=== PATIENT | male | born 1995 | race Caucasian/White ===

== ENCOUNTER 2016-12-17 14:10 | Inpatient (IN) | payer BC ==
[~2016-12-17] VITALS: Ht 167.6 cm; Wt 88.0 kg
[2016-12-17] VITALS (18 sets, daily range): BP systolic 85–120; BP diastolic 40–53; PULSE 62–74; RESP 15–24; TEMP 98.1; Ht 167.6 cm; Wt 88.0 kg
[~2016-12-17 14:10] MED LIST: ACET325T33 PO; OMEP20CA9 PO
[2016-12-17] MEDS ORDERED: SOD CHLORIDE 0.9% 1,000 ML IV STA (15:49)
[2016-12-17] MEDS ORDERED: ONDANSETRON 4 MG INJ IV STA (15:49)
[2016-12-17] MEDS ORDERED: morphine 4 MG/ML VIAL IV STA ×2 (15:49→16:19)
[2016-12-17 16:05] LABS: BASOPHILS % 0.4 % (0.0-2.0); EOSINOPHILS # 0.3 10^3/ul (0.0-0.5); EOSINOPHILS % 3.6 % (0.0-7.0); HEMATOCRIT 44.7 % (42.0-52.0); HEMOGLOBIN 15.4 g/dl (14.0-18.0); LYMPHOCYTES # 2.4 10^3/ul (0.8-2.9); LYMPHOCYTES % 28.6 % (15.0-51.0); MEAN CORPUSCULAR HEMOGLOBIN 31.5 pg (29.0-33.0); MEAN CORPUSCULAR HGB CONC 34.5 g/dl (32.0-37.0); MEAN CORPUSCULAR VOLUME 91.4 fl (82.0-101.0); MONOCYTE # 0.7 10^3/ul (0.3-0.9); MONOCYTES % 8.6 % (0.0-11.0); NEUTROPHILS % 58.7 % (39.0-77.0); PLATELET COUNT 213 10^3/UL (140-415); RED BLOOD COUNT 4.89 10^6/ul (4.70-6.10); RED CELL DISTRIBUTION WIDTH 12.3 % (11.5-14.5); WHITE BLOOD COUNT 8.3 10^3/ul (4.8-10.8)
[2016-12-17 16:07] LABS: ADD UMIC NO; UR ASCORBIC ACID NEGATIVE (NEGATIVE); UR BILIRUBIN (Dip) NEGATIVE (NEGATIVE); UR BLOOD (Dip) NEGATIVE (NEGATIVE); UR CLARITY CLEAR (CLEAR); UR COLOR YELLOW (YELLOW); UR GLUCOSE (Dip) NEGATIVE (NEGATIVE); UR KETONES (Dip) NEGATIVE (NEGATIVE); UR LEUKOCYTE ESTERASE (Dip) NEGATIVE Leu/ul (NEGATIVE); UR NITRITE (Dip) NEGATIVE (NEGATIVE); UR SPECIFIC GRAVITY (Dip) 1.025 (1.003-1.030); UR TOTAL PROTEIN (Dip) NEGATIVE (NEGATIVE); UR UROBILINOGEN (Dip) NEGATIVE (NEGATIVE)
--- NOTE | 2016-12-17 16:20 | RADRPT ---
PROCEDURE: CT abdomen and pelvis without contrast. CLINICAL INDICATION: Abdominal pain. TECHNIQUE: CT of the abdomen and pelvis without contrast was performed on a multidetector high-reso lution CT scanner. Coronal and sagittal reformatted images were obtained from the axial source image s. Images were reviewed on a high-resolution PACS workstation. The total exam CTDI equals 11.64 mGy and the total exam DLP equals 728.25 mGy-cm. One or more of the following dose reduction techniques were used: - Automated exposure control. - Adjustment of the mA and/or kV according to patient size. - Use of iterative reconstruction technique. COMPARISON: Ultrasound dated 10/06/2015. FINDINGS: Visualized lower thorax: The visualized lung bases are clear. The visualized heart is unremarkable. Hepatobiliary system and spleen: The liver is grossly unremarkable. There is no intra or extrahepat ic biliary ductal dilatation. The gallbladder is grossly unremarkable. The spleen is grossly unremar kable. The pancreas is grossly unremarkable. Adrenal glands and genitourinary system: The adrenal glands are grossly unremarkable. There is no n ephrolithiasis or hydronephrosis. The urinary bladder is grossly unremarkable. The prostate gland an d seminal vesicles are grossly unremarkable. Gastrointestinal system: The stomach and small bowel are unremarkable. There is no bowel wall thick ening or evidence of obstruction. The appendix is in the right lower quadrant and is dilated measuri ng 11 mm in diameter with periappendiceal inflammatory change, consistent with appendicitis. Peritoneum, vascular, and lymphatics: There is no free intraperitoneal air, free fluid, or focal dr ainable collection within the abdomen or pelvis. There are enlarged right lower quadrant mesenteric lymph nodes, likely reactive in nature. There are atherosclerotic changes of the aorta, which is non aneurysmal. Musculoskeletal system and soft tissues: There are no concerning osseous lesions. The soft tissues are unremarkable. IMPRESSION: 1. Positive for appendicitis. 2. Enlarged right lower quadrant mesenteric lymph nodes, likely reactive in nature. These findings discussed with Kerry Kwong at 1618 hours on 12/17/2016. RPTAT: HLBP .Marv Vergara MD, Date Time Electronically viewed and signed by .Marv Vergara MD, on 12/17/2016 16:20 .P/
--- NOTE | 2016-12-17 16:23 | ERD ---
ER Documentation Chief Complaint Date/Time DATE: 12/17/16 TIME: 16:21 Chief Complaint LOWER MID-AP 8/10 X 2 DAYS, DENIES N&V&D HPI This is a 21-year-old male presents to the ER with right lower quadrant pain that started yesterday morning. Patient states that pain is achy in nature it is nonradiating. He states he feels bloated. He denies any nausea vomiting or diarrhea. Patient denies any constipation. He denies any urinary frequency or dysuria. He denies any fevers or chills. ROS 12 point review of systems was done, all negative except per HPI. Medications Home Meds Active Scripts Acetaminophen* (Tylenol*) 325 Mg Tablet, 2 TAB PO Q8 Y for PAIN AND OR ELEVATED TEMP, #20 TAB Prov:MEÑO LYMAN PA-C 10/06/15 Omeprazole* (Prilosec*) 20 Mg Capsule.dr, 20 MG PO BID, #30 CAP Prov:MEÑO LYMAN PA-C 10/06/15 Allergies Allergies: Coded Allergies: No Known Allergy (Unverified , 12/17/16) PMhx/Soc History of Surgery: No Anesthesia Reaction: No Hx Neurological Disorder: No Hx Respiratory Disorders: No Hx Cardiac Disorders: No Hx Psychiatric Problems: No Hx Miscellaneous Medical Probl: Yes (GASTRITIS ) Hx Alcohol Use: No Hx Substance Use: No Hx Tobacco Use: No Smoking Status: Never smoker Physical Exam Vitals Vital Signs Date Time Temp Pulse Resp B/P Pulse Ox O2 Delivery O2 Flow Rate FiO2 12/17/16 14:13 98.2 67 18 140/65 99 Physical Exam GENERAL: The patient is well developed and appropriate for usual state of health , in no apparent distress. HEENT: Atraumatic. CHEST: Clear to auscultation bilaterally. There are no rales, wheezes or rhonchi. HEART: Regular rate and rhythm. No murmurs, clicks, rubs or gallops. ABDOMEN: Soft nondistended, tender to palpation in the right lower. Good bowel sounds. No rebound or guarding. No gross peritonitis. No gross organomegaly or masses. BACK: No midline or flank tenderness. NEURO: Alert and oriented. SKIN: There is no apparent rash or petechia. The skin is warm and dry. Result Diagram: 12/17/16 1600 Results 24 hrs Laboratory Tests Test 12/17/16 16:00 White Blood Count 8.310^3/ul Red Blood Count 4.8910^6/ul Hemoglobin 15.4g/dl Hematocrit 44.7% Mean Corpuscular Volume 91.4fl Mean Corpuscular Hemoglobin 31.5pg Mean Corpuscular Hemoglobin Concent 34.5g/dl Red Cell Distribution Width 12.3% Platelet Count 56403^3/UL Mean Platelet Volume 10.0fl Neutrophils % 58.7% Lymphocytes % 28.6% Monocytes % 8.6% Eosinophils % 3.6% Basophils % 0.4% Nucleated Red Blood Cells % 0.0/100WBC Neutrophils # (Manual) 4.910^3/ul Lymphocytes # 2.410^3/ul Monocytes # 0.710^3/ul Eosinophils # 0.310^3/ul Basophils # 0.010^3/ul Nucleated Red Blood Cells # 0.010^3/ul Urine Color YELLOW Urine Clarity CLEAR Urine pH 5.0 Urine Specific [place] 1.025 Urine Ketones NEGATIVEmg/dL Urine Nitrite NEGATIVEmg/dL Urine Bilirubin NEGATIVEmg/dL Urine Urobilinogen NEGATIVEmg/dL Urine Leukocyte Esterase NEGATIVELeu/ul Urine Hemoglobin NEGATIVEmg/dL Urine Glucose NEGATIVEmg/dL Urine Total Protein NEGATIVEmg/dl Current Medications Medications (Trade) Dose Ordered Sig/Stephane Route PRN Reason Start Time Stop Time Status Last Admin Dose Admin Sodium Chloride (NS) 1,000 ml @ 1,000 mls/hr Q1H STAT IV 12/17/16 15:49 12/17/16 16:48 12/17/16 16:11 Morphine Sulfate (morphine) 4 mg ONCE STAT IV 12/17/16 15:49 12/17/16 15:51 DC 12/17/16 16:11 Ondansetron HCl (Zofran Inj) 4 mg ONCE STAT IV 12/17/16 15:49 12/17/16 15:51 DC 12/17/16 16:[id number] [place] [id number] Radiology Main Line: [phone] DIAGNOSTIC IMAGING REPORT Patient: FELIX CAIN : 1995 Age: 21 Sex: M MR #: [id number] DOS: 12/17/16 1549 Ordering MD: KERRY JOHNSON PA-C Location: [facility] Room/Bed: PROCEDURE: CT abdomen and pelvis without contrast. CLINICAL INDICATION: Abdominal pain. TECHNIQUE: CT of the abdomen and pelvis without contrast was performed on a multidetector high-resolution CT scanner. Coronal and sagittal reformatted images were obtained from the axial source images. Images were reviewed on a high-resolution PACS workstation. The total exam CTDI equals 11.64 mGy and the total exam DLP equals 728.25 mGy-cm. One or more of the following dose reduction techniques were used: - Automated exposure control. - Adjustment of the mA and/or kV according to patient size. - Use of iterative reconstruction technique. COMPARISON: Ultrasound dated 10/06/2015. FINDINGS: Visualized lower thorax: The visualized lung bases are clear. The visualized heart is unremarkable. Hepatobiliary system and spleen: The liver is grossly unremarkable. There is no intra or extrahepatic biliary ductal dilatation. The gallbladder is grossly unremarkable. The spleen is grossly unremarkable. The pancreas is grossly unremarkable. Adrenal glands and genitourinary system: The adrenal glands are grossly unremarkable. There is no nephrolithiasis or hydronephrosis. The urinary bladder is grossly unremarkable. The prostate gland and seminal vesicles are grossly unremarkable. Gastrointestinal system: The stomach and small bowel are unremarkable. There is no bowel wall thickening or evidence of obstruction. The appendix is in the right lower quadrant and is dilated measuring 11 mm in diameter with periappendiceal inflammatory change, consistent with appendicitis. Peritoneum, vascular, and lymphatics: There is no free intraperitoneal air, free fluid, or focal drainable collection within the abdomen or pelvis. There are enlarged right lower quadrant mesenteric lymph nodes, likely reactive in nature. There are atherosclerotic changes of the aorta, which is nonaneurysmal. Musculoskeletal system and soft tissues: There are no concerning osseous lesions. The soft tissues are unremarkable. IMPRESSION: 1. Positive for appendicitis. 2. Enlarged right lower quadrant mesenteric lymph nodes, likely reactive in nature. These findings discussed with Kerry Johnson at 1618 hours on 12/17/2016. RPTAT: HLBP .Marv Vergara MD, MD Date Time Electronically viewed and signed by .Marv Vergara MD, MD on 12/17/2016 16:20 .P/ CC: KERRY JOHNSON Procedures/MDM This is a 21-year-old male presents to the ER with right lower quadrant pain, patient does have acute appendicitis, he will be admitted for further management and care. Departure Diagnosis: Primary Impression: Appendicitis Condition: Fair KERRY JOHNSON Dec 17, 2016 16:23
[2016-12-17] MEDS ORDERED: PIPER-TAZO 3.375 GM IV (PMX) 100 ML IVPB ONE (16:30)
[2016-12-17 16:37] LABS: ALBUMIN 4.6 g/dl (3.3-4.9); ALBUMIN/GLOBULIN RATIO 1.31; BILIRUBIN,INDIRECT 0.6 mg/dl (0-1.1); BILIRUBIN,TOTAL 0.6 mg/dl (0.2-1.3); CREATININE 0.94 mg/dl (0.61-1.24); POTASSIUM 3.8 mmol/L (3.5-5.1); TOTAL PROTEIN 8.1 g/dl (6.1-8.1)
[2016-12-17 16:55] LABS: INR 1.02; PROTIME 13.4 Sec (12.2-14.2)
[2016-12-17 16:56] LABS: PARTIAL THROMBOPLASTIN TIME 29.7 Sec (25.0-35.0)
[2016-12-17] MEDS ORDERED: NACL 0.9% 3 ML SYG IV SCH (17:30)
[2016-12-17] MEDS ORDERED: ACETAMINOPHEN 325 MG TAB PO PRN ×2 (17:30→23:00)
[2016-12-17] MEDS ORDERED: ONDANSETRON 4 MG INJ IV PRN ×4 (17:30→23:00)
[2016-12-17] MEDS ORDERED: morphine 2 MG INJ IV PRN ×2 (17:30→23:00)
[2016-12-17] MEDS: SOD CHLORIDE 0.9% 1,000 ML IV SCH (18:36)
--- NOTE | 2016-12-17 21:07 | CONS ---
Date/Time of Note Date/Time of Note DATE: 12/17/16 TIME: 21:03 Assessment/Plan Assessment/Plan Chief Complaint/Hosp Course 21-year-old male with acute appendicitis. This has been confirmed via CT scan. * Continue nothing by mouth * Broad-spectrum intravenous antibiotics * IV fluid hydration * Pain control Definitive treatment will consist of laparoscopic appendectomy; possible open. This has been explained to the patient along with all risks and benefits of the procedure. [She] fully understands and is agreeable to the treatment plan as outlined. Informed consent will be obtained and the patient will be scheduled for laparoscopic appendectomy; possible open Problems: Consultation Date/Type/Reason Admit Date/Time Date of Consultation: Dec 17, 2016 Type of Consultation: GENERAL SURGERY Reason for Consultation Acute appendicitis Hx of Present Illness The patient is a 21-year-old male with no significant past medical history who presented to the emergency room with a 1 day history of right lower quadrant abdominal pain. He denies any nausea/vomiting, diarrhea/constipation or fever/ chills. There have been no similar episodes of pain in the past. On arrival to the emergency room CT scan of the abdomen and pelvis showed a dilated appendix with periappendiceal inflammatory changes. Currently, he is still complaining of right lower quadrant abdominal pain. A 14 point review of systems was conducted and was negative except for that which is mentioned in HPI Past Medical History Medical History: no pertinent history Past Surgical History Past Surgical Hx: no surgical history Family History Significant Family History: no pertinent family hx Social History Smoking Status: Never smoker Exam/Review of Systems Vital Signs Vitals Vital Signs Date Time Temp Pulse Resp B/P Pulse Ox O2 Delivery O2 Flow Rate FiO2 12/17/16 20:42 68 18 121/66 98 Room Air 12/17/16 18:40 98.1 Exam GENERAL: Awake, alert, oriented x 3. No acute distress. SKIN: No jaundice. HEENT: PERRLA, EOMI, No Scleral Icterus NECK: Supple without JVD CARDIOVASCULAR: S1S2, regular rate and rhythm. No murmurs appreciated. RESPIRATORY: Clear to auscultation bilaterally. ABDOMEN: Soft, bowel sounds present, nondistended, there is right lower quadrant tenderness to palpation. There is no rebound or guarding. EXTREMITIES: Free range of motion x 4. No cyanosis, edema, or clubbing. NEUROLOGIC: Cranial nerves II-XII are intact. Sensation is intact grossly. Results Result Diagram: 12/17/16 1600 12/17/16 1600 Results 24 hrs Laboratory Tests Test 12/17/16 16:00 White Blood Count 8.3 Red Blood Count 4.89 Hemoglobin 15.4 Hematocrit 44.7 Mean Corpuscular Volume 91.4 Mean Corpuscular Hemoglobin 31.5 Mean Corpuscular Hemoglobin Concent 34.5 Red Cell Distribution Width 12.3 Platelet Count 213 Mean Platelet Volume 10.0 Neutrophils % 58.7 Lymphocytes % 28.6 Monocytes % 8.6 Eosinophils % 3.6 Basophils % 0.4 Nucleated Red Blood Cells % 0.0 Neutrophils # (Manual) 4.9 Lymphocytes # 2.4 Monocytes # 0.7 Eosinophils # 0.3 Basophils # 0.0 Nucleated Red Blood Cells # 0.0 Prothrombin Time 13.4 Prothrombin Time Ratio 1.0 INR International Normalized Ratio 1.02 Activated Partial Thromboplast Time 29.7 Urine Color YELLOW Urine Clarity CLEAR Urine pH 5.0 Urine Specific [place] 1.025 Urine Ketones NEGATIVE Urine Nitrite NEGATIVE Urine Bilirubin NEGATIVE Urine Urobilinogen NEGATIVE Urine Leukocyte Esterase NEGATIVE Urine Hemoglobin NEGATIVE Urine Glucose NEGATIVE Urine Total Protein NEGATIVE Sodium Level 138 Potassium Level 3.8 Chloride Level 101 Carbon Dioxide Level 26 Anion Gap 15 Blood Urea Nitrogen 18 Creatinine 0.94 Glucose Level 95 Calcium Level 9.0 Total Bilirubin 0.6 Direct Bilirubin 0.00 Indirect Bilirubin 0.6 Aspartate Amino Transf (AST/SGOT) 27 Alanine Aminotransferase (ALT/SGPT) 39 Alkaline Phosphatase 88 Total Protein 8.1 Albumin 4.6 Globulin 3.50 H Albumin/Globulin Ratio 1.31 Lipase 52 Medications Medications Current Medications Sodium Chloride (NS) 1,000 ml @ 100 mls/hr Q10H IV Last administered on t 18:36; Admin Dose 100 MLS/HR; Start 12/17/16 at 17:29 Ondansetron HCl (Zofran Inj) 4 mg Q6H PRN IV NAUSEA AND/OR VOMITING; Start 12/17 at 17:30 Morphine Sulfate (morphine) 2 mg Q4H PRN IV SEVERE PAIN LEVEL 7-10; Start at 17:30 Procedures Procedures PROCEDURE: CT abdomen and pelvis without contrast. CLINICAL INDICATION: Abdominal pain. TECHNIQUE: CT of the abdomen and pelvis without contrast was performed on a multidetector high-resolution CT scanner. Coronal and sagittal reformatted images were obtained from the axial source images. Images were reviewed on a high-resolution PACS workstation. The total exam CTDI equals 11.64 mGy and the total exam DLP equals 728.25 mGy-cm. One or more of the following dose reduction techniques were used: - Automated exposure control. - Adjustment of the mA and/or kV according to patient size. - Use of iterative reconstruction technique. COMPARISON: Ultrasound dated 10/06/2015. FINDINGS: Visualized lower thorax: The visualized lung bases are clear. The visualized heart is unremarkable. Hepatobiliary system and spleen: The liver is grossly unremarkable. There is no intra or extrahepatic biliary ductal dilatation. The gallbladder is grossly unremarkable. The spleen is grossly unremarkable. The pancreas is grossly unremarkable. Adrenal glands and genitourinary system: The adrenal glands are grossly unremarkable. There is no nephrolithiasis or hydronephrosis. The urinary bladder is grossly unremarkable. The prostate gland and seminal vesicles are grossly unremarkable. Gastrointestinal system: The stomach and small bowel are unremarkable. There is no bowel wall thickening or evidence of obstruction. The appendix is in the right lower quadrant and is dilated measuring 11 mm in diameter with periappendiceal inflammatory change, consistent with appendicitis. Peritoneum, vascular, and lymphatics: There is no free intraperitoneal air, free fluid, or focal drainable collection within the abdomen or pelvis. There are enlarged right lower quadrant mesenteric lymph nodes, likely reactive in nature. There are atherosclerotic changes of the aorta, which is nonaneurysmal. Musculoskeletal system and soft tissues: There are no concerning osseous lesions. The soft tissues are unremarkable. IMPRESSION: 1. Positive for appendicitis. 2. Enlarged right lower quadrant mesenteric lymph nodes, likely reactive in nature. These findings discussed with Rohith Kwong at 1618 hours on 12/17/2016. RPTAT: HLBP .Marv Vergara MD, MD Date Time Electronically viewed and signed by .Marv Vergara MD, MD on 12/17/2016 16:20 .P/ CC: ROHITH KWONG MICHAEL A. MD Dec 17, 2016 21:07
[2016-12-17] MEDS ORDERED: BUPIVACAINE 0.5% 30 ML VIAL INJ ONE (21:17)
[2016-12-17] MEDS ORDERED: SUCCINYLCHOLINE CHLORIDE 100 MG/5 ML SYG IV ONE (21:42)
[2016-12-17] MEDS ORDERED: PROPOFOL 20 ML ONE ×2 (21:42→22:09)
[2016-12-17] MEDS ORDERED: LIDOCAINE 2% (SDV) 5 ML INJ ONE (21:42)
[2016-12-17] MEDS ORDERED: MIDAZOLAM 1 MG/ML 2 ML INJ ONE (21:43)
[2016-12-17] MEDS ORDERED: ROCURONIUM 50 MG INJ ONE (21:43)
[2016-12-17] MEDS ORDERED: FENTAnyl 50 MCG/ML VIAL ONE (21:43)
[2016-12-17] MEDS ORDERED: HYDROmorphONE (0.2 MG/ML) 10ML SYG IV PRN ×3 (22:00)
[2016-12-17] MEDS ORDERED: MEPERIDINE 25 MG INJ IV PRN (22:00)
[2016-12-17] MEDS ORDERED: FENTAnyl 50 MCG/ML VIAL IV PRN ×3 (22:00)
[2016-12-17] MEDS ORDERED: PROCHLORPERAZINE 10 MG INJ IV PRN (22:00)
[2016-12-17] MEDS ORDERED: DIPHENHYDRAMINE 50 MG INJ IV PRN (22:00)
[2016-12-17] MEDS ORDERED: ONDANSETRON 4 MG INJ ONE (22:06)
[2016-12-17] MEDS ORDERED: FAMOTIDINE 20 MG INJ ONE (22:06)
[2016-12-17] MEDS ORDERED: DEXAMETHASONE 4 MG/ML 1 ML INJ ONE (22:06)
[2016-12-17] MEDS ORDERED: BUPIVACAINE 0.5%/EPI (SDV) 10 ML INJ ONE (22:17)
[2016-12-17] MEDS ORDERED: KETOROLAC 30 MG INJ ONE (22:33)
[2016-12-17] MEDS ORDERED: NEOSTIGMINE 3 MG/3 ML SYRINGE ONE ×2 (22:34→22:42)
[2016-12-17] MEDS ORDERED: GLYCOPYRROLATE 0.4 MG INJ ONE ×2 (22:34→22:42)
--- NOTE | 2016-12-17 22:45 | OPR ---
Date/Time of Note Date/Time of Note DATE: 12/17/16 TIME: 22:42 Operative Report Procedure Date: Dec 17, 2016 Preoperative Diagnosis Acute appendicitis with localized peritonitis Postoperative Diagnosis Acute appendicitis with localized peritonitis Operation Performed Laparoscopic appendectomy Surgeon: HOLGER PARRISH MD Anesthesia Type: general Anesthesiologist: ISAURO PANTOJA MD Estimated Blood Loss: none Transfusion Required: no Specimens Appendix Grafts/Implants: none Complications: no Pt Condition Post Procedure: stable Disposition: PACU Indications Patient is a 21-year-old male who presented to the emergency room complaining of a 1 day history of right lower quadrant abdominal pain. The patient had clinical signs and symptoms of acute appendicitis which was confirmed via CT scan. He was therefore admitted, kept nothing by mouth, started on broad- spectrum intravenous antibiotics and scheduled for laparoscopic appendectomy; possible open as definitive treatment. All risks and benefits of the procedure including but not limited to: Wound infection, excessive bleeding, injury to intra-abdominal organs, conversion to open procedure etc. were explained to the patient in full detail. The patient fully understood and wished to proceed with the procedure. Informed consent was therefore obtained. Operative\Procedure Findings Nonperforated appendicitis Procedure Description The patient was brought to the operating room and placed supine on the operating table. Bilateral sequential compression devices were placed on both lower extremities. The patient had been maintained on broad-spectrum intravenous antibiotics while an inpatient on the floor. After the induction of smooth general endotracheal anesthesia the patient's abdomen was prepped and draped in the standard surgical fashion. A 5 mm incision was made in the superior umbilicus and a Veress needle was used to access the intra-abdominal cavity atraumatically. Pneumoperitoneum was then obtained and the Veress needle was exchanged for a 5 mm trocar through which a 5 mm laparoscope was placed. Two further working ports were then placed, a 12 mm port in the midline suprapubic area and another 5 mm port midway between the suprapubic and umbilical port sites. All port sites were anesthetized with 0.25% Marcaine prior to incision. Attention was then turned towards the right lower quadrant. Using atraumatic graspers, the appendix was grasped and retracted superiorly and medially exposing the mesoappendix. The appendix appeared erythematous and inflamed consistent with acute appendicitis, but not perforated. Using the harmonic scalpel the mesoappendix was taken down to the level of the appendiceal base. The appendix was then transected at its base using a firing of the laparoscopic ASHUTOSH stapler. Once completely free the appendix was placed in an Endo Catch bag and withdrawn through the suprapubic port site and passed off the field as specimen. Hemostasis was then inspected for and noted to be total. The fascia of the suprapubic port site was reapproximated using an Endo Close device and 0 Vicryl suture. Pneumoperitoneum was then released and all remaining trochars were withdrawn under direct vision. The subcutaneous tissues were irrigated with warm normal saline and further local anesthesia was applied around the skin of the incision sites. The skin was then reapproximated using 4- 0 Monocryl sutures in subcuticular fashion. The incisions were cleaned and Dermabond was applied and the patient was awoken from anesthesia and transported to the recovery room in stable condition. All counts were correct at the end of the case x 2. HOLGER PARRISH MD Dec 17, 2016 22:45
[2016-12-17] MEDS ORDERED: IBUPROFEN 600 MG TAB PO PRN (23:00)
[2016-12-17] MEDS ORDERED: HYDROCODONE/APAP (5/325) TAB PO PRN (23:00)
[2016-12-17] MEDS ORDERED: HYDROCODONE/APAP (10/325) TAB PO PRN (23:00)
[2016-12-17] MEDS ORDERED: KETOROLAC 30 MG INJ IV PRN (23:00)
[2016-12-18 00:30] VITALS: BP 107/52; PULSE 60; RESP 18
[2016-12-18 00:45] VITALS: BP 110/50; PULSE 63; RESP 18
[2016-12-18 01:00] VITALS: BP 112/48; PULSE 62; RESP 18
[2016-12-18 01:15] VITALS: BP 109/51; PULSE 66; RESP 18
[2016-12-18] MEDS: AMPICILLIN/SULB 3 GM/NS (PMX) 100 ML IVPB SCH ×3 (01:16→11:18)
[2016-12-18 02:00] VITALS: BP 103/53; RESP 18
[2016-12-18] MEDS: SOD CHLORIDE 0.9% 1,000 ML IV SCH ×2 (03:29→06:14)
[2016-12-18 05:36] LABS: BASOPHILS % 0.1 % (0.0-2.0); EOSINOPHILS % 0.1 % (0.0-7.0); HEMATOCRIT 44.9 % (42.0-52.0); HEMOGLOBIN 15.2 g/dl (14.0-18.0); LYMPHOCYTES # 0.9 10^3/ul (0.8-2.9); LYMPHOCYTES % 10.9 % (15.0-51.0); MEAN CORPUSCULAR HEMOGLOBIN 31.3 pg (29.0-33.0); MEAN CORPUSCULAR HGB CONC 33.9 g/dl (32.0-37.0); MEAN CORPUSCULAR VOLUME 92.4 fl (82.0-101.0); MEAN PLATELET VOLUME 10.2 fl (7.4-10.4); MONOCYTE # 0.1 10^3/ul (0.3-0.9); MONOCYTES % 1.7 % (0.0-11.0); PLATELET COUNT 186 10^3/UL (140-415); RED BLOOD COUNT 4.86 10^6/ul (4.70-6.10); WHITE BLOOD COUNT 8.5 10^3/ul (4.8-10.8)
[2016-12-18 05:52] LABS: ALBUMIN 3.7 g/dl (3.3-4.9); ALBUMIN/GLOBULIN RATIO 1.23; BILIRUBIN,INDIRECT 0.6 mg/dl (0-1.1); BILIRUBIN,TOTAL 0.6 mg/dl (0.2-1.3); CALCIUM 8.9 mg/dl (8.4-10.2); CREATININE 0.75 mg/dl (0.61-1.24); POTASSIUM 4.4 mmol/L (3.5-5.1); TOTAL PROTEIN 6.7 g/dl (6.1-8.1)
[2016-12-18 08:12] VITALS: BP 118/54; RESP 20
--- NOTE | 2016-12-18 11:36 | HP ---
Date/Time of Note Date/Time of Note DATE: 12/18/16 TIME: 11:34 Assessment/Plan VTE Prophylaxis VTE Prophylaxis Intervention: other Lines/Catheters IV [facility] Per[facility] IV Assessment/Plan Chief Complaint/Hosp Course 1) appendicitis - s/p appendectomy - eating orally now - possible discharge today Problems: HPI/ROS Admit Date/Time Admit Date/Time 12/17/16 Hx of Present Illness Patient without any previous medical problems comes in with abdominal pain. Patient was found to have appendicitis and is admitted for further treatment. PMH/Family/Social Past Medical History Medical History: no pertinent history Past Surgical History Past Surgical Hx: no surgical history Social History Alcohol Use: occasionally Smoking Status: Never smoker Exam/Review of Systems Vital Signs Vitals Vital Signs Date Time Temp Pulse Resp B/P Pulse Ox O2 Delivery O2 Flow Rate FiO2 12/18/16 08:12 97.2 63 20 118/54 98 12/18/16 01:15 Room Air 12/17/16 23:14 8.0 Intake and Output 12/17/16 12/17/16 12/18/16 15:00 23:00 07:00 Intake Total 2000 ml 1560 ml Output Total 10 ml 700 ml Balance 1990 ml 860 ml Exam Constitutional: well developed Head: atraumatic, normocephalic Neck: supple Respiratory: clear to auscultation Cardiovascular: regular rate and rhythm Gastrointestinal: soft Extremities: normal pulses Labs Result Diagram: 12/18/16 0449 12/18/16 0449 Medications Medications Current Medications Sodium Chloride (NS) 1,000 ml @ 100 mls/hr Q10H IV Last administered on 06:14; Admin Dose 100 MLS/HR; Start 12/17/16 at 17:29 Ondansetron HCl (Zofran Inj) 4 mg Q6H PRN IV NAUSEA AND/OR VOMITING; Start 12/17 at 17:30 Morphine Sulfate 2 mg 2 mg Q4H PRN IV SEVERE PAIN LEVEL 7-10; Start 12/17/16 at 17:30 Ampicillin Sodium/ Sulbactam Sodium (Unasyn 3gm/NS (Pmx)) 100 ml @ 200 mls/hr Q6H IVPB Last administered on 12/18/16 11:18; Admin Dose 200 MLS/HR; Start 12/17 at 23:00; Stop 12/18/16 at 22:59 Morphine Sulfate (morphine) 2 mg Q2H PRN IV PAIN LEVEL 6-10; Start 12/17/16 at 23:00 Acetaminophen/ Hydrocodone Bitart ([place] (5/325)) 1 tab Q6H PRN PO PAIN LEVEL 6 -10; Start 12/17/16 at 23:00 Acetaminophen/ Hydrocodone Bitart ([place] (10/325)) 1 tab Q6H PRN PO PAIN; Start 12/17/16 at 23:00 Ketorolac Tromethamine (Toradol) 30 mg Q6H PRN IV PAIN; Start 12/17/16 at 23:00 ; Stop 12/20/16 at 22:59 Acetaminophen (Tylenol Tab) 650 mg Q6H PRN PO PAIN AND OR ELEVATED TEMP; Start 12/17/16 at 23:00 Ondansetron HCl (Zofran Inj) 4 mg Q6H PRN IV NAUSEA AND/OR VOMITING; Start 12/17 at 23:00 Ibuprofen (Motrin) 600 mg Q6H PRN PO PAIN LEVEL 1-5; Start 12/20/16 at 13:00 HUSAM CUETO Dec 18, 2016 11:36
--- NOTE | 2016-12-18 12:12 | PN ---
Date/Time of Note Date/Time of Note DATE: 12/18/16 TIME: 12:10 Assessment/Plan Lines/Catheters IV [facility] ([facility] Peripheral IV Assessment/Plan Assessment/Plan 21-year-old male status post laparoscopic appendectomy postop day #1 * Surgically stable for discharge home when medically cleared * Follow-up in office in 1-2 weeks Subjective 24 Hr Interval Summary Doing well. Denies abdominal pain. Tolerating diet. Ambulating. Afebrile. Exam/Review of Systems Vital Signs Vitals Vital Signs Date Time Temp Pulse Resp B/P Pulse Ox O2 Delivery O2 Flow Rate FiO2 12/18/16 08:12 97.2 63 20 118/54 98 12/18/16 01:15 Room Air 12/17/16 23:14 8.0 Intake and Output 12/17/16 12/17/16 12/18/16 15:00 23:00 07:00 Intake Total 2000 ml 1560 ml Output Total 10 ml 700 ml Balance 1990 ml 860 ml Exam Free Text/Dictation GENERAL: Awake, alert, oriented x 3. No acute distress. CARDIOVASCULAR: S1S2, regular rate and rhythm. No murmurs appreciated. RESPIRATORY: Clear to auscultation bilaterally. ABDOMEN: Soft, bowel sounds present, nondistended, minimal incisional tenderness to palpation. INCISIONS: Clean, dry, intact EXTREMITIES: Free range of motion x 4. No cyanosis, edema, or clubbing. Results Result Diagram: 12/18/16 0449 12/18/16 0449 HOLGER PARRISH MD Dec 18, 2016 12:12
[2016-12-20] MEDS ORDERED: IBUPROFEN 600 MG TAB PO PRN (13:00)
== END 2016-12-18 13:50 | disposition home or self-care (01) | DRG 340 ==
LOC: FTE 14:10 → SDS 20:25 → MS1 12-18 00:30 → SDS 12-18 00:30
PROVIDERS: ADMIT Internal Medicine; ATTEND Surgery
PROC: 0DTJ4ZZ Resection of Appendix, Percutaneous Endoscopic Approach (ICD-10-PCS; principal; 2016-12-17 21:00)
DX: K35.3 Acute appendicitis with localized peritonitis (principal)
CPT/HCPCS: 36415; 74176; 80053; 81003; 83690; 85025; 85610; 85730; 88304; 96361; 96374; 96375; 96376; J0295; J1100; J1885; J2250; J2270; J2405; J2543; J2710; J3010; J7030; J7999

== ENCOUNTER 2017-01-09 10:23 | Emergency (ER) | payer BC ==
[~2017-01-09] VITALS: Ht 170.2 cm; Wt 72.0 kg
[2017-01-09 10:26] VITALS: Ht 170.2 cm; Wt 72.0 kg
--- NOTE | 2017-01-09 11:23 | ERD ---
ER Documentation Chief Complaint Date/Time DATE: 01/09/17 TIME: 11:19 Chief Complaint pt bib family with c/o chest heavyness for 3 days, HPI 21 year old male presents complaining of chest heaviness, non-radiating mild in severity for 3 days. Patient states that this has happened before and he went to his primary care physician in which he did not do anything. He denies any shortness of breath. Denies taking any medications for this. ROS All systems reviewed and are negative except as per history of present illness. Medications Home Meds Active Scripts Acetaminophen* (Tylenol*) 325 Mg Tablet, 2 TAB PO Q8 Y for PAIN AND OR ELEVATED TEMP, #20 TAB Prov:MEÑO LYMAN PA-C 10/06/15 Omeprazole* (Prilosec*) 20 Mg Capsule., 20 MG PO BID, #30 CAP Prov:MEÑO LYMAN PA-C 10/06/15 Allergies Allergies: Coded Allergies: No Known Allergy (Unverified , 12/17/16) PMhx/Soc History of Surgery: No Anesthesia Reaction: No Hx Neurological Disorder: No Hx Respiratory Disorders: No Hx Cardiac Disorders: No Hx Psychiatric Problems: No Hx Miscellaneous Medical Probl: Yes (GASTRITIS ) Hx Substance Use: No Hx Tobacco Use: No Physical Exam Vitals Vital Signs Date Time Temp Pulse Resp B/P Pulse Ox O2 Delivery O2 Flow Rate FiO2 01/09/17 10:26 98.3 77 18 147/66 98 Physical Exam Const: WDWN Head: Atraumatic Eyes: Normal Conjunctiva ENT: Normal External Ears, Nose and Mouth. Neck: Full range of motion..~ No meningismus. Resp: Clear to auscultation bilaterally Cardio: Regular rate and rhythm, no murmurs Abd: Soft, non tender, non distended. Normal bowel sounds Skin: No petechiae or rashes Back: No midline or flank tenderness Ext: No cyanosis, or edema Neur: Awake and alert Psych: Normal Mood and Affect Procedures/MDM 21-year-old male presents to the emergency department complaining of chest heaviness for the past 3 days. I have a low suspicion for ACS, pulmonary embolism, pneumonia, pleural effusion. Patient appears well, afebrile and nontoxic. EKG did not show any evidence of dysrhythmia or STEMI. Chest x-ray did not show any evidence of infiltrates, effusion or pneumothorax. Patient is stable to follow-up with his primary care physician to get a referral to see a lining setter. Discussed return to the emergency department for any worsening signs or symptoms. He understands and agrees with plan Departure Diagnosis: Primary Impression: Chest pain Condition: Stable PIERCE MUNIZ PA-C Jan 09, 2017 11:23
[2017-01-09] MEDS ORDERED: ACET500C5 PO (11:26)
--- NOTE | 2017-01-09 11:41 | RADRPT ---
PROCEDURE: XR Chest. CLINICAL INDICATION: chest pain TECHNIQUE: Single frontal view of the chest was obtained COMPARISON: None FINDINGS: The heart and mediastinum are within normal limits. The lungs are clear. There is no pleural effusion or pneumothorax. RPTAT: AA IMPRESSION: No acute disease. .Malik Miller MD, Date Time Electronically viewed and signed by .Malik Miller MD, on 01/09/2017 11:41 .S/
== END 2017-01-09 12:09 | disposition home or self-care (01) ==
LOC: FTE 10:23
DX: R07.89 Other chest pain (principal)
CPT/HCPCS: 71010; 93005